=== PATIENT | female | born 1995 | race Caucasian/White ===

== ENCOUNTER 2022-07-10 09:18 | Emergency (ER) | payer OTHER ==
[~2022-07-10] VITALS: Ht 165.1 cm; Wt 51.7 kg
--- NOTE | 2022-07-10 09:40 | NUR ---
C/O EIGHT EAR PAIN X YESTERDAY +RINGING +DISCHARGE +HEAR LOSS
--- NOTE | 2022-07-10 09:50 | NUR ---
at bed side for eval
[2022-07-10] MEDS ORDERED: CIPR7.5D9 RIGHT EAR (10:30)
--- NOTE | 2022-07-10 10:35 | NUR ---
Patient discharged to home in stable condition. Written and verbal after care instructions given. Patient verbalizes understanding of instruction.
[2022-07-10] MEDS ORDERED: NAPR-1192 PO (10:36)
[2022-07-10 11:00] VITALS: BP 112/60
== END 2022-07-10 11:01 | disposition home or self-care (01) ==
LOC: ER 09:25
DX: H92.01 Otalgia, right ear (principal); H60.91 Unspecified otitis externa, right ear; Z79.899 Other long term (current) drug therapy